=== PATIENT | female | born 1940 | race Caucasian/White ===

== ENCOUNTER 2024-03-06 23:54 | Inpatient (IN) | payer MEDICARE, OTHER ==
[~2024-03-06] VITALS: Ht 165.1 cm; Wt 56.7 kg
[2024-03-07 00:31] LABS: BASOPHILS # (AUTO) 0.1 K/uL (0.0-0.2); BASOPHILS % (AUTO) 0.8 % (0.0-2.0); EOSINOPHILS # (AUTO) 0.3 K/uL (0.0-0.7); EOSINOPHILS % (AUTO) 3.3 % (0.0-6.0); HEMATOCRIT 38 % (33-45); HEMOGLOBIN 12.6 g/dL (11.5-14.8); LYMPHOCYTES # (AUTO) 3.3 K/uL (0.8-4.8); LYMPHOCYTES % (AUTO) 33.3 % (20.0-44.0); MEAN CORPUSCULAR HEMOGLOBIN 31 PG (26.0-33.0); MEAN CORPUSCULAR HGB CONC 34 g/dl (31.0-36.0); MEAN CORPUSCULAR VOLUME 92 fL (82-100); MONOCYTES % (AUTO) 9.8 % (2.0-12.0); NEUTROPHILS # (AUTO) 5.3 K/uL (1.8-8.9); NEUTROPHILS % (AUTO) 52.8 % (43.0-81.0); PLATELET COUNT (AUTO) 184 K/uL (150-450); RED BLOOD CELL COUNT(AUTO) 4.07 MIL/uL (4.0-5.2)
[2024-03-07 00:42] LABS: CALCIUM, SERUM 8.9 mg/dL (8.5-10.1); CARBON DIOXIDE 31 mmol/L (21-32); CHLORIDE 106 mmol/L (98-107); CREATININE 0.8 mg/dL (0.6-1.3); GLUCOSE 100 mg/dL (74-106); POTASSIUM 4.1 mmol/L (3.5-5.1); SODIUM SERUM 141 mmol/L (136-145); UREA NITROGEN, BLOOD 20 mg/dL (7-18)
[2024-03-07 00:44] LABS: SERUM AMMONIA 12 umol/L (11-32)
[2024-03-07 00:48] LABS: ALANINE AMINOTRANSFERASE 17 U/L (12-78); ALBUMIN 3.5 g/dL (3.4-5.0); ALKALINE PHOSPHATASE 60 U/L (46-116); ASPARTATE AMINOTRANSFERASE 14 U/L (15-37); BILIRUBIN,TOTAL 0.3 mg/dL (0.2-1.0); TOTAL PROTEIN, SERUM 6.7 g/dL (6.4-8.2)
[2024-03-07 00:52] LABS: ACETAMINOPHEN <10 ug/ml (10-30); ALCOHOL, BLOOD < 3 mg/dL (0-10); SALICYLATE 1.7 mg/dL (2.8-20.0)
[2024-03-07 01:50] LABS: APPEARANCE,URINE CLEAR (CLEAR); BILIRUBIN,URINE NEGATIVE (NEGATIVE); BLOOD, URINE NEGATIVE Ery/uL (NEGATIVE); COLOR,URINE YELLOW (YELLOW); KETONES,URINE NEGATIVE (NEGATIVE); LEUKOCYTE ESTERASE ,URINE NEGATIVE (NEGATIVE); NITRITE, URINE NEGATIVE (NEGATIVE); PROTEIN,URINE NEGATIVE (NEGATIVE); UGLUCOSE NEGATIVE (NEGATIVE); UROBILINOGEN,URINE 0.2 EU/dL (0.2)
[2024-03-07 02:02] LABS: AMPHETAMINE, URINE NEGATIVE (NEGATIVE); BARBITURATE, URINE NEGATIVE (NEGATIVE); BENZODIAZEPINE, URINE NEGATIVE (NEGATIVE); CANNABINOID, URINE NEGATIVE (NEGATIVE); COCCAINE, URINE NEGATIVE (NEGATIVE); OPIATE, URINE NEGATIVE (NEGATIVE); PHENCYCLIDINE SCREEN,URINE NEGATIVE (NEGATIVE)
[2024-03-07] MEDS ORDERED: DOCU100C36 PO (02:36)
[2024-03-07] MEDS ORDERED: MIRT15TA3 PO (02:36)
[2024-03-07] MEDS ORDERED: ACET-868 PO (02:36)
[2024-03-07] MEDS ORDERED: ATOR20TA PO (02:54)
[2024-03-07] MEDS ORDERED: CHOL100045 PO (02:55)
[2024-03-07] MEDS ORDERED: ACET325T53 PO (02:57)
[2024-03-07] MEDS ORDERED: CYAN500T64 PO (02:57)
[2024-03-07] MEDS ORDERED: MAG HYDROX/AL HYDROX/SIMETH 30 ML UDC PO PRN (03:00)
[2024-03-07] MEDS ORDERED: MAGNESIUM HYDROXIDE 30 ML UDC PO PRN (03:00)
[2024-03-07] MEDS ORDERED: LORAZEPAM 0.5 MG TABLET PO PRN ×2 (03:00)
[2024-03-07] MEDS ORDERED: TEMAZEPAM 7.5 MG CAPSULE PO PRN ×2 (03:00)
[2024-03-07] MEDS ORDERED: DIVA500T2 PO (03:00)
[2024-03-07] MEDS ORDERED: MIRT-121 PO (03:01)
[2024-03-07] MEDS ORDERED: MULT-225 PO (03:01)
[2024-03-07] MEDS: BLOOD SUGAR DIAGNOSTIC 1 EACH STRIP IN ONE (03:03)
[2024-03-07 05:22] VITALS: BP 112/65; TEMP 98.3; O2SAT 98
[2024-03-07] MEDS: CHOLECALCIFEROL 1,000 UNIT TABLET (VIT D3) PO SCH (08:30)
[2024-03-07] MEDS: CYANOCOBALAMIN 500 MCG TABLET PO SCH (08:30)
[2024-03-07] MEDS: MULTIVITAMINS,THERAGRAN 1 UDTAB TABLET PO SCH (08:30)
[2024-03-07] MEDS: DOCUSATE SODIUM 100 MG CAPSULE PO SCH (08:30)
[2024-03-07] MEDS: ATORVASTATIN 10 MG TABLET PO SCH (08:30)
[2024-03-07 09:15] VITALS: BP 110/66; TEMP 98.6; O2SAT 93
[2024-03-07 15:59] VITALS: BP 101/79; TEMP 97.4; O2SAT 100
[2024-03-07] MEDS: DIVALPROEX SODIUM 125 MG TABLET.DR PO SCH (17:15)
[2024-03-07 20:39] VITALS: BP 114/62; TEMP 98.1; O2SAT 96
[2024-03-08 08:00] VITALS: BP 92/53; TEMP 97.8; O2SAT 96
[2024-03-08 16:00] VITALS: BP 92/55; TEMP 97.8; O2SAT 97
[2024-03-08 20:52] VITALS: BP 101/66; TEMP 97.7; O2SAT 97
[2024-03-09 07:48] LABS: BASOPHILS % (AUTO) 0.6 % (0.0-2.0); EOSINOPHILS # (AUTO) 0.3 K/uL (0.0-0.7); EOSINOPHILS % (AUTO) 3.8 % (0.0-6.0); HEMATOCRIT 38 % (33-45); HEMOGLOBIN 12.4 g/dL (11.5-14.8); LYMPHOCYTES # (AUTO) 3.6 K/uL (0.8-4.8); LYMPHOCYTES % (AUTO) 42.2 % (20.0-44.0); MEAN CORPUSCULAR HEMOGLOBIN 31 PG (26.0-33.0); MEAN CORPUSCULAR HGB CONC 33 g/dl (31.0-36.0); MEAN CORPUSCULAR VOLUME 93 fL (82-100); MONOCYTES # (AUTO) 0.9 K/uL (0.1-1.30); MONOCYTES % (AUTO) 10.9 % (2.0-12.0); NEUTROPHILS # (AUTO) 3.7 K/uL (1.8-8.9); NEUTROPHILS % (AUTO) 42.5 % (43.0-81.0); PLATELET COUNT (AUTO) 180 K/uL (150-450); RED BLOOD CELL COUNT(AUTO) 4.06 MIL/uL (4.0-5.2); RED CELL DISTRIBUTION WIDTH 14.3 % (11.5-15.0); WHITE BLOOD COUNT (AUTO) 8.6 K/uL (4.3-11.0)
[2024-03-09 08:00] VITALS: BP 100/55; TEMP 97.8; O2SAT 97
[2024-03-09 08:05] LABS: CALCIUM, SERUM 8.7 mg/dL (8.5-10.1); CARBON DIOXIDE 32 mmol/L (21-32); CHLORIDE 109 mmol/L (98-107); CREATININE 0.7 mg/dL (0.6-1.3); GLUCOSE 86 mg/dL (74-106); POTASSIUM 4.6 mmol/L (3.5-5.1); SODIUM SERUM 145 mmol/L (136-145); UREA NITROGEN, BLOOD 22 mg/dL (7-18)
[2024-03-09 08:17] LABS: CHOLESTEROL 167 mg/dL (<200); HDL CHOLESTEROL 74 mg/dL (40-60); LDL 76 mg/dL (0-99); TRIGLYCERIDES 85 mg/dL (30-150)
[2024-03-09] MEDS: DIVALPROEX SODIUM 250 MG TABLET.DR PO SCH (08:44)
[2024-03-09 16:00] VITALS: BP 114/86; TEMP 97.9; O2SAT 96
[2024-03-09 21:15] VITALS: BP 102/61; TEMP 97.9; O2SAT 96
[2024-03-10 08:00] VITALS: BP 98/66; TEMP 97.8; O2SAT 97
[2024-03-10 16:00] VITALS: BP 99/59; TEMP 98.1; O2SAT 96
[2024-03-10] MEDS: ACETAMINOPHEN 325 MG TABLET PO PRN (18:43)
[2024-03-10 20:03] VITALS: BP 102/61; TEMP 98.2; O2SAT 95
[2024-03-11 08:00] VITALS: BP 100/51; TEMP 97.7; O2SAT 98
[2024-03-11 16:00] VITALS: BP 109/81; TEMP 97.9; O2SAT 97
[2024-03-11 20:00] VITALS: BP 90/53; TEMP 97.7; O2SAT 97
[2024-03-12 08:00] VITALS: BP 111/72; TEMP 97.7; O2SAT 94
[2024-03-12 16:00] VITALS: BP 100/56; TEMP 98; O2SAT 97
[2024-03-12 20:00] VITALS: BP 106/66; TEMP 97.7; O2SAT 97
[2024-03-13 08:00] VITALS: BP_SYST 116; BP_SYST 117; BP_DIAS 72; BP_DIAS 92; TEMP 98; TEMP 98.2; O2SAT 95; O2SAT 96
[2024-03-13 16:00] VITALS: BP 101/50; TEMP 97.8; O2SAT 96
[2024-03-13 20:00] VITALS: BP 89/43; TEMP 98.1; O2SAT 96
[2024-03-13] MEDS: DIVALPROEX SODIUM 500 MG TABLET.DR PO SCH (21:27)
[2024-03-14 08:00] VITALS: BP 99/67; TEMP 98; TEMP 98.1; O2SAT 96
[2024-03-14 16:00] VITALS: BP 90/50; TEMP 98.7; O2SAT 100
[2024-03-14 21:21] VITALS: BP 106/66; TEMP 97.9; O2SAT 96
[2024-03-15 08:00] VITALS: BP 103/64; TEMP 98.4; O2SAT 98
[2024-03-15 16:07] VITALS: BP 110/67; TEMP 97.5; O2SAT 99
[2024-03-15 20:49] VITALS: BP 92/58; TEMP 98; O2SAT 97
[2024-03-15 22:00] VITALS: BP 103/59; TEMP 98; O2SAT 97
[2024-03-16 08:00] VITALS: BP 109/57; TEMP 98.1; O2SAT 97
[2024-03-16 16:00] VITALS: BP 102/57; TEMP 98.4; O2SAT 97
[2024-03-16 20:18] VITALS: BP 110/63; TEMP 98.2; O2SAT 98
[2024-03-17 08:00] VITALS: BP 95/67; TEMP 97.7; O2SAT 96
[2024-03-17 11:26] LABS: ALANINE AMINOTRANSFERASE 15 U/L (12-78); ALBUMIN 3.2 g/dL (3.4-5.0); ALKALINE PHOSPHATASE 57 U/L (46-116); ASPARTATE AMINOTRANSFERASE 13 U/L (15-37); BILIRUBIN,TOTAL 0.4 mg/dL (0.2-1.0); CARBON DIOXIDE 31 mmol/L (21-32); CHLORIDE 106 mmol/L (98-107); CREATININE 0.6 mg/dL (0.6-1.3); GLUCOSE 93 mg/dL (74-106); POTASSIUM 4.3 mmol/L (3.5-5.1); SODIUM SERUM 144 mmol/L (136-145); TOTAL PROTEIN, SERUM 6.6 g/dL (6.4-8.2); UREA NITROGEN, BLOOD 25 mg/dL (7-18)
[2024-03-17 16:00] VITALS: BP 103/84; TEMP 98.1; O2SAT 96
[2024-03-17 20:00] VITALS: BP 101/58; TEMP 98
[2024-03-18 08:00] VITALS: BP 98/59; TEMP 98.7; O2SAT 96
[2024-03-18] MEDS: ENSURE ENLIVE CHOC 237 ML CAN PO SCH (08:04)
[2024-03-18 14:52] LABS: BASOPHILS % (AUTO) 0.4 % (0.0-2.0); EOSINOPHILS # (AUTO) 0.3 K/uL (0.0-0.7); EOSINOPHILS % (AUTO) 2.9 % (0.0-6.0); HEMATOCRIT 39 % (33-45); HEMOGLOBIN 12.8 g/dL (11.5-14.8); LYMPHOCYTES # (AUTO) 3.4 K/uL (0.8-4.8); LYMPHOCYTES % (AUTO) 30.7 % (20.0-44.0); MEAN CORPUSCULAR HEMOGLOBIN 31 PG (26.0-33.0); MEAN CORPUSCULAR HGB CONC 33 g/dl (31.0-36.0); MEAN CORPUSCULAR VOLUME 93 fL (82-100); MONOCYTES % (AUTO) 9.1 % (2.0-12.0); NEUTROPHILS # (AUTO) 6.2 K/uL (1.8-8.9); NEUTROPHILS % (AUTO) 56.9 % (43.0-81.0); PLATELET COUNT (AUTO) 179 K/uL (150-450); RED BLOOD CELL COUNT(AUTO) 4.17 MIL/uL (4.0-5.2); RED CELL DISTRIBUTION WIDTH 14.1 % (11.5-15.0)
[2024-03-18 16:00] VITALS: BP 98/54; TEMP 98.7; O2SAT 98
[2024-03-18 20:00] VITALS: BP 109/65; TEMP 98.5; O2SAT 99
[2024-03-19 08:00] VITALS: BP 109/71; TEMP 98; O2SAT 97
[2024-03-19 16:00] VITALS: BP 98/67; TEMP 98.2; O2SAT 98
[2024-03-19 20:41] VITALS: BP 100/74; TEMP 98.2; O2SAT 97
[2024-03-20 08:00] VITALS: BP 102/62; TEMP 97.7; O2SAT 96
[2024-03-20 16:00] VITALS: BP 99/72; TEMP 98; O2SAT 100
[2024-03-20 20:00] VITALS: BP 93/59; TEMP 97.8; O2SAT 100
[2024-03-21 09:17] VITALS: BP 69/58; TEMP 98.1; O2SAT 95
[2024-03-21 10:53] VITALS: BP 90/59
[2024-03-21 16:00] VITALS: BP 96/55; TEMP 97.9; O2SAT 98
[2024-03-21 20:34] VITALS: BP 114/52; TEMP 97.9; O2SAT 95
[2024-03-22 09:00] VITALS: BP 91/58; TEMP 97.3; O2SAT 95
[2024-03-22 17:00] VITALS: BP 91/56; TEMP 97.3; O2SAT 95
[2024-03-22 21:36] VITALS: BP 114/75; TEMP 98.1; O2SAT 98
[2024-03-23 08:00] VITALS: BP 100/62; TEMP 98.7; O2SAT 97
[2024-03-23 08:12] LABS: CARBON DIOXIDE 32 mmol/L (21-32); CHLORIDE 109 mmol/L (98-107); CREATININE 0.6 mg/dL (0.6-1.3); GLUCOSE 89 mg/dL (74-106); SODIUM SERUM 145 mmol/L (136-145); UREA NITROGEN, BLOOD 26 mg/dL (7-18)
[2024-03-23 09:42] LABS: VALPROIC ACID 71 ug/mL (50-100)
== END 2024-03-23 13:30 | DRG 885 ==
LOC: ER 03-07 00:03 → GPS 03-07 01:57
PROVIDERS: ADMIT Psychiatry & Neurology Psychosomatic Medicine; ATTEND Nurse Practitioner Acute Care
DX: F39 Unspecified mood [affective] disorder (principal); F03.93 Unspecified dementia, unspecified severity, with mood disturbance; M19.90 Unspecified osteoarthritis, unspecified site; R79.89 Other specified abnormal findings of blood chemistry; E78.5 Hyperlipidemia, unspecified; F31.9 Bipolar disorder, unspecified; Z73.6 Limitation of activities due to disability; R41.9 Unspecified symptoms and signs involving cognitive functions and awareness; Z88.0 Allergy status to penicillin
CPT/HCPCS: 36415; 80048-TC; 80053-TC; 80061-TC; 80164-TC; 82140-TC; 82962-TC; 85025-TC; 87081-TC; 97116-TC; 97530-TC; 98960; G0480